=== PATIENT | female | born 1940 | race Caucasian/White ===

== ENCOUNTER 2019-12-06 07:24 | Emergency (ER) | payer OTHER ==
[2019-12-06] MEDS ORDERED: ACETAMINOPHEN 1000 MG/100 ML VIAL (NON FORMULARY) IVPB ONE (08:55)
[2019-12-06 09:41] LABS: BASO % 0.8 % (0-2.0); HEMATOCRIT 35.2 % (32.4-45.2); HEMOGLOBIN 11.5 GM/dL (10.7-15.3); LYMPH % 14.3 % (8-40); MCH 27.8 pg (25.7-33.7); MCHC 32.7 g/dl (32.0-36.0); MEAN CELL VOLUME 85.2 fl (80-96); MEAN PLT VOLUME 7.1 fl (7.5-11.1); MONO % 6.4 % (3.8-10.2); NEUT % 76.5 % (42.8-82.8); PLATELET COUNT 418 K/MM3 (134-434); RBC 4.13 M/mm3 (3.60-5.2); RDW 14.4 % (11.6-15.6); WHITE BLOOD COUNT 10.2 K/mm3 (4.0-10.0)
[2019-12-06] MEDS ORDERED: ACETAMINOPHEN INJECTION 100 ML IVPB ONE (09:44)
[2019-12-06 10:09] LABS: ALBUMIN 3.1 g/dl (3.4-5.0); BILIRUBIN,TOTAL 0.3 mg/dL (0.2-1); BLOOD UREA NITROGEN 16.4 mg/dL (7-18); CALCIUM 9.4 mg/dL (8.5-10.1); CREATININE 0.6 mg/dL (0.55-1.3); POTASSIUM 4.4 mmol/L (3.5-5.1); TOT PROT 7.1 g/dl (6.4-8.2); URIC ACID 3.3 mg/dL (2.6-7.2)
[2019-12-06 10:23] LABS: ERYTHROCYTE SEDIMENTATION RATE 91 mm/hr (0-30)
[2019-12-06] MEDS ORDERED: LISINOPRIL 20 MG TABLET (FP) PO ONE (11:29)
[2019-12-06] MEDS ORDERED: LISINOPRIL 20 MG TABLET (FP) ONE (11:30)
[2019-12-06 11:40] VITALS: PULSE 78; TEMP 98.1
[2019-12-06 13:09] VITALS: BP 190/71
--- NOTE | 2019-12-06 13:12 | PDOC ---
Documentation entered by Charlie Birch SCRIBE, acting as scribe for Raul Benoit MD. Raul Benoit MD: This documentation has been prepared by the Antolin rosenthal inCharlie SCRIBE, under my direction and personally reviewed by me in its entirety. I confirm that the documentation accurately reflects all work, treatment, procedures, and medical decision making performed by me. History of Present Illness - General Chief Complaint: Chronic pain Stated Complaint: KNEE PAIN Time Seen by Provider: 12/06/19 08:42 History Source: Patient Exam Limitations: No Limitations - History of Present Illness Initial Comments: 12/06/19 09:01 The patient is a 78 year old female with a significant past medical history of HL, HTN, DM, asthma who presents to the ED with bilateral knee, bilateral wrist, bilateral shoulder pain and swelling. Pt was diagnosed with arthritis and stiff muscles about one year ago. Pt goes to physical therapy with Dr. Torrez but has only been twice because of COVID-19. Pt endorses taking Tylenol (last dose yesterday) and Motrin for pain relief. The patient denies chest pain and shortness of breath. Denies fever, chills and/or any GI symptoms. Denies any symptoms. Denies any other symptoms. Allergies: NKDA PCP: Dr. Bailey Ortho: Dr. Torrez Past History - Medical History Allergies/Adverse Reactions: Allergies Allergy/AdvReac Type Severity Reaction Status Date / Time No Known Allergies Allergy Verified 12/06/19 08:18 Home Medications: Ambulatory Orders Atorvastatin Ca [Lipitor] 10 mg PO HS 12/31/15 Lisinopril [Prinivil] 20 mg PO HS 12/31/15 Diclofenac Sodium 75 mg PO BID PRN 11/02/19 Escitalopram Oxalate [Lexapro -] 10 mg PO HS 11/02/19 Ibuprofen [Motrin Ib] 400 mg PO TID PRN 11/02/19 Omeprazole 40 mg PO HS 11/02/19 metFORMIN HCL [Glucophage -] 500 mg PO HS 11/02/19 Oxycodone HCl/Acetaminophen [Percocet 5-325 mg Tablet] 1 tab PO Q6H #20 tablet MDD 3 12/06/19 Asthma: Yes Cardiac Disorders: Yes (MURMUR) COPD: No Diabetes: Yes HTN: Yes Hypercholesterolemia: Yes Psychiatric Problems: Yes (DEPRESSION) - Surgical History Cholecystectomy: Yes - Psycho-Social/Smoking History Smoking History: Never smoked Have you smoked in the past 12 months: No Information on smoking cessation initiated: No - Substance Abuse Hx (Audit-C & DAST Scrn) How often the patient has a drink containing alcohol: Never Score: In Men: 4 or > Positive; In Women: 3 or > Positive: 0 Screen Result (Pos requires Nsg. Audit-10AR): Negative In the last yr the pt used illegal drug/Rx for NonMed reason: No Score: Yes response is considered Positive: 0 Screen Result (Positive result requires Nsg. DAST-10): Negative Review of Systems - Review of Systems Able to Perform ROS?: Yes Comments:: 12/06/19 09:01 CONSTITUTIONAL: No fever, no chills, no fatigue EYES: No visual changes ENT: No ear pain, no sore throat CARDIOVASCULAR: No chest pain, no palpitations RESPIRATORY: No cough, no SOB GI: No abdominal pain, no nausea, no vomiting, no constipation, no diarrhea GENITOURINARY: No dysuria, no frequency, no hematuria MUSKULOSKELETAL: +bilateral knee, bilateral wrist, bilateral shoulder pain and swelling SKIN: No rash NEURO: No headache All Other Systems: Reviewed and Negative *Physical Exam - Vital Signs Last Vital Signs Temp Pulse Resp BP Pulse Ox 100 F H 86 17 205/83 H 99 12/06/19 07:35 12/06/19 07:35 12/06/19 07:35 12/06/19 07:35 12/06/19 08:41 - Physical Exam 12/06/19 13:03 EXAMINATION CONSTITUTIONAL: Awake and alert, obese, in moderatedistress HEAD: Normocephalic; atraumatic EYES: PERRL; EOM intact ENMT: External appears normal; normal oropharynx NECK: Supple; non-tender; no cervical lymphadenopathy CARD: Normal S1, S2; no murmurs, rubs, or gallops RESP: Normal chest excursion with respiration; breath sounds clear and equal bilaterally; no wheezes, rhonchi, or rales ABD: Soft, non-distended; non-tender; no palpable organomegaly, no palpable hernias EXT: + Edema is noted to the bilateral wrist joints, bilateral knee joints with limited passive range of motion at the shoulder joint, elbows, wrists and knees consistent with polyarthritis. SKIN: Warm, dry, no rash NEURO: No focal neurological deficiencies. ED Treatment Course - LABORATORY CBC & Chemistry Diagram: 12/06/19 09:13 12/06/19 09:13 Medical Decision Making - Medical Decision Making 12/06/19 13:05 Patient is a 78-year-old female with history of hypertension and arthritis who presents with diffuse polyarthritis for the past several days. I suspect osteoarthritis, however, rheumatoid arthritis cannot be ruled out at this time. Will administer IV Tylenol. Will obtain CBC/CMP/CRP/ESR. I do not suspect Lyme arthritis at this time. No indication for imaging. Gouty arthritis is also highly unlikely. Will discharge with pain meds with outpatient follow-up. Discharge - Discharge Information Problems reviewed: Yes Clinical Impression/Diagnosis: Arthritis Joint pain Qualifiers: Joint pain location: unspecified Qualified Code(s): M25.50 - Pain in unspecified joint Condition: Stable - Follow up/Referral Referrals: Letitia Bailey [Primary Care Provider] - - Patient Discharge Instructions Patient Printed Discharge Instructions: DI for Arthritis - Post Discharge Activity
== END 2019-12-06 13:13 | disposition home or self-care (01) ==
LOC: JER 07:24
PROC: 3E033NZ Introduction of Analgesics, Hypnotics, Sedatives into Peripheral Vein, Percutaneous Approach (ICD-10-PCS; principal; 2019-12-06)
DX: M25.50 Pain in unspecified joint (principal)
CPT/HCPCS: 36415; 80053; 84550; 85025; 85651; 86140; 96374; 99284-25; J0131

== ENCOUNTER 2020-03-03 09:57 | Inpatient (IN) | payer OTHER ==
[2020-03-03 10:23] VITALS: BMI 30.9
[2020-03-03] MEDS ORDERED: dilTIAZem HCL 50 MG/10 ML - 10 ML VIAL IVPUSH ONE (11:36)
[2020-03-03] MEDS ORDERED: dilTIAZem HCL 125 MG/25 ML - 25 ML VIAL ONE (11:55)
[2020-03-03 12:03] LABS: BASO % 0.7 % (0-2.0); EOS % 1.6 % (0-4.5); HEMOGLOBIN 12.8 GM/dL (10.7-15.3); MCH 28.7 pg (25.7-33.7); MCHC 32.8 g/dl (32.0-36.0); MEAN CELL VOLUME 87.3 fl (80-96); MEAN PLT VOLUME 7.9 fl (7.5-11.1); MONO % 7.6 % (3.8-10.2); NEUT % 71.1 % (42.8-82.8); PLATELET COUNT 280 K/MM3 (134-434); RBC 4.47 M/mm3 (3.60-5.2); RDW 15.5 % (11.6-15.6); WHITE BLOOD COUNT 10.8 K/mm3 (4.0-10.0)
[2020-03-03] MEDS ORDERED: methylPREDNISolone NA SUCC 125 MG/2 ML VIAL IVPB ONE (12:03)
[2020-03-03] MEDS ORDERED: methylPREDNISolone NA SUCC 125 MG/2 ML VIAL ONE (12:03)
[2020-03-03 12:05] LABS: VENOUS BASE EXCESS -1.1 mmol/L (-2-2); VENOUS O2 SATURATION 79.3 % (70-80); VENOUS PH 7.344 (7.310-7.410)
[2020-03-03 12:06] LABS: EPI CELLS >36 /uL (0-25.1); HYALINE CASTS 1 /uL (0-3.1); URINE APPEARANCE CLOUDY; URINE BACTERIA 735 /uL (0-1359); URINE BILIRUBIN NEGATIVE (NEGATIVE); URINE COLOR YELLOW; URINE GLUCOSE (UA) NEGATIVE (NEGATIVE); URINE KETONE NEGATIVE (NEGATIVE); URINE LEUK ESTERASE 1+ (NEGATIVE); URINE NITRITE NEGATIVE (NEGATIVE); URINE PROTEIN 2+ (NEGATIVE); URINE UROBILINOGEN 0.2 mg/dL (0.2-1.0); URINE WBC 30 /uL (0-25.8)
[2020-03-03 12:22] LABS: URINE RBC 16.1 /uL (0-23.9)
[2020-03-03] MEDS ORDERED: METOPROLOL TARTRATE 5 MG/5 ML VIAL IVPUSH ONE ×2 (12:30→18:25)
[2020-03-03 12:35] LABS: ALBUMIN 3.8 g/dl (3.4-5.0); ALK PHOS 94 U/L (45-117); ANION GAP 8 MMOL/L (8-16); BILIRUBIN,DIRECT 0.2 mg/dL (0.0-0.2); BILIRUBIN,TOTAL 0.6 mg/dL (0.2-1); CHLORIDE 107 mmol/L (98-107); CO2 25 mmol/L (21-32); CREATININE 0.6 mg/dL (0.55-1.3); GLUCOSE,RANDOM 152 mg/dL (74-106); POTASSIUM 4.5 mmol/L (3.5-5.1); SGOT/AST 31 U/L (15-37); SGPT/ALT 45 U/L (13-61); SODIUM 139 mmol/L (136-145); TOT PROT 7.6 g/dl (6.4-8.2)
[2020-03-03] MEDS ORDERED: METOPROLOL TARTRATE 5 MG/5 ML VIAL ONE ×3 (12:38→21:36)
[2020-03-03 13:41] LABS: LDH 282 U/L (84-246)
[2020-03-03] MEDS ORDERED: CEFTRIAXONE 1,000 MG in DEXTROSE 5%-WATER - 50 ML IVPB STA (14:13)
[2020-03-03] MEDS ORDERED: HEPARIN NA (PORCINE) 5,000 UNITS/ML 1ML VIAL IVPUSH STA (14:14)
[2020-03-03] MEDS ORDERED: HEPARIN NA (PORCINE) 5,000 UNITS/ML 1ML VIAL IVPUSH PRN ×2 (14:22)
[2020-03-03] MEDS ORDERED: HEPARIN - 25,000 UNIT in SODIUM CHLORIDE 495 ML IV SCH (14:30)
[2020-03-03] MEDS ORDERED: CEFTRIAXONE 1 GM/50 ML BAG ONE (14:31)
[2020-03-03 15:02] LABS: INR 1.13 (0.83-1.09); PROTHROMBIN TIME (PATIENT) 13.3 SEC (9.7-13.0)
[2020-03-03 15:05] LABS: ACTIVATED PTT 21.8 SECONDS (25.2-36.5)
[2020-03-03] MEDS ORDERED: FUROSEMIDE 40 MG/4 ML INJECTABLE VIAL IVPUSH ONE (16:22)
[2020-03-03] MEDS ORDERED: METOPROLOL TARTRATE 50 MG TABLET (FP) PO ONE (16:45)
[2020-03-03] MEDS ORDERED: FUROSEMIDE 40 MG/4 ML INJECTABLE VIAL ONE (16:50)
[2020-03-03] MEDS ORDERED: FUROSEMIDE 40 MG TABLET (FP) PO ONE (20:59)
[2020-03-03] MEDS ORDERED: METOPROLOL TARTRATE 5 MG/5 ML VIAL IVPUSH PRN (20:59)
[2020-03-03] MEDS ORDERED: FUROSEMIDE 40 MG TABLET (FP) ONE (21:36)
[2020-03-03] MEDS: APIXABAN 5 MG TABLET PO SCH (22:06)
[2020-03-03 22:48] LABS: BLOOD UREA NITROGEN 19.5 mg/dL (7-18); CALCIUM 9.3 mg/dL (8.5-10.1); CREATININE 0.7 mg/dL (0.55-1.3); POTASSIUM 4.5 mmol/L (3.5-5.1)
[2020-03-04] MEDS: INSULIN SLIDING SCALE (NOVOLOG) 1 VIAL SQ SCH ×4 (06:15→21:47)
[2020-03-04] MEDS: APIXABAN 5 MG TABLET PO SCH ×2 (09:22→21:47)
[2020-03-04] MEDS ORDERED: METOPROLOL TARTRATE 50 MG TABLET (FP) PO SCH (12:00)
[2020-03-04] MEDS ORDERED: FUROSEMIDE 40 MG/4 ML INJECTABLE VIAL IVPUSH SCH (12:00)
[2020-03-04] MEDS: LISINOPRIL 5 MG TABLET PO SCH ×2 (13:29→13:36)
[2020-03-04] MEDS ORDERED: INSULIN SLIDING SCALE (NOVOLOG) 1 VIAL SQ ONE (17:44)
[2020-03-04] MEDS ORDERED: FLU VACCINE (FLULAVAL) PF 60 MCG/0.5 ML SYRINGE 2020-2021 IM ONE (20:00)
[2020-03-04] MEDS: ATORVASTATIN CA 40 MG TABLET (FP) PO SCH (21:47)
[2020-03-05] MEDS: INSULIN SLIDING SCALE (NOVOLOG) 1 VIAL SQ SCH ×4 (06:27→21:54)
[2020-03-05 07:17] LABS: BASO % 0.5 % (0-2.0); EOS % 1.2 % (0-4.5); HEMATOCRIT 39.2 % (32.4-45.2); HEMOGLOBIN 12.8 GM/dL (10.7-15.3); LYMPH % 30.6 % (8-40); MCH 28.5 pg (25.7-33.7); MCHC 32.7 g/dl (32.0-36.0); MEAN CELL VOLUME 87.2 fl (80-96); MEAN PLT VOLUME 8.1 fl (7.5-11.1); MONO % 5.7 % (3.8-10.2); PLATELET COUNT 313 K/MM3 (134-434); RDW 15.6 % (11.6-15.6); WHITE BLOOD COUNT 13.1 K/mm3 (4.0-10.0)
[2020-03-05 07:32] LABS: ALBUMIN 3.6 g/dl (3.4-5.0); BILIRUBIN,TOTAL 0.6 mg/dL (0.2-1); BLOOD UREA NITROGEN 27.8 mg/dL (7-18); CALCIUM 9.1 mg/dL (8.5-10.1); CREATININE 0.7 mg/dL (0.55-1.3); TOT PROT 7.3 g/dl (6.4-8.2)
[2020-03-05] MEDS: APIXABAN 5 MG TABLET PO SCH (09:01)
[2020-03-05] MEDS ORDERED: ASPIRIN 81 MG CHEWABLE TABLETS PO ONE (09:03)
[2020-03-05] MEDS ORDERED: HEPARIN NA (PORCINE) 5,000 UNITS/ML 1ML VIAL IVPUSH PRN ×2 (09:24)
[2020-03-05] MEDS ORDERED: CLOPIDOGREL BISULFATE 300 MG TABLET PO ONE (09:35)
[2020-03-05] MEDS: LISINOPRIL 5 MG TABLET PO SCH (10:57)
[2020-03-05] MEDS: FUROSEMIDE 20 MG TABLET (FP) PO SCH (10:57)
[2020-03-05] MEDS: HEPARIN SOD,PORK IN 0.45% NACL 25,000 UNITS/500 ML INFUS.BAG IVPB SCH (11:20)
[2020-03-05] MEDS: ATORVASTATIN CA 40 MG TABLET (FP) PO SCH (21:54)
[2020-03-06] MEDS ORDERED: MELATONIN 5 MG TABLETS PO ONE (01:25)
[2020-03-06] MEDS: INSULIN SLIDING SCALE (NOVOLOG) 1 VIAL SQ SCH ×4 (05:59→21:46)
[2020-03-06 08:44] LABS: BILIRUBIN,TOTAL 0.4 mg/dL (0.2-1); BLOOD UREA NITROGEN 22.1 mg/dL (7-18); CALCIUM 8.8 mg/dL (8.5-10.1); CREATININE 0.6 mg/dL (0.55-1.3); POTASSIUM 4.1 mmol/L (3.5-5.1)
[2020-03-06] MEDS: HEPARIN SOD,PORK IN 0.45% NACL 25,000 UNITS/500 ML INFUS.BAG IVPB SCH (09:29)
[2020-03-06] MEDS: LISINOPRIL 5 MG TABLET PO SCH (09:30)
[2020-03-06] MEDS: CLOPIDOGREL BISULFATE 75 MG TABLET (FP) PO SCH (09:30)
[2020-03-06] MEDS: FUROSEMIDE 20 MG TABLET (FP) PO SCH (09:30)
[2020-03-06] MEDS: ASPIRIN 81 MG CHEWABLE TABLETS PO SCH (09:30)
[2020-03-06] MEDS ORDERED: METOPROLOL TARTRATE 5 MG/5 ML VIAL IVPUSH PRN (11:59)
[2020-03-06] MEDS ORDERED: DEXTROSE 5%-WATER - 50 ML IVPB ONE (12:01)
[2020-03-06] MEDS ORDERED: cefTRIAXone SODIUM 1 GM VIAL ONE (12:01)
[2020-03-06] MEDS: CEFTRIAXONE 1 GM in DEXTROSE 5%-WATER - 50 ML IVPB SCH (12:15)
[2020-03-06] MEDS: ATORVASTATIN CA 40 MG TABLET (FP) PO SCH (21:46)
[2020-03-06] MEDS ORDERED: MELATONIN 5 MG TABLETS PO PRN (23:30)
[2020-03-07] MEDS ORDERED: ACETAMINOPHEN 325 MG TABLET (FP) PO ONE (05:30)
[2020-03-07] MEDS: INSULIN SLIDING SCALE (NOVOLOG) 1 VIAL SQ SCH ×2 (05:59→11:28)
[2020-03-07 06:41] LABS: HEMATOCRIT 35.4 % (32.4-45.2); HEMOGLOBIN 11.6 GM/dL (10.7-15.3); MCH 28.2 pg (25.7-33.7); MCHC 32.8 g/dl (32.0-36.0); MEAN PLT VOLUME 8.2 fl (7.5-11.1); PLATELET COUNT 260 K/MM3 (134-434); RBC 4.11 M/mm3 (3.60-5.2); RDW 15.7 % (11.6-15.6); WHITE BLOOD COUNT 9.8 K/mm3 (4.0-10.0)
[2020-03-07] MEDS ORDERED: SODIUM CHLORIDE NASAL SPRAY 44 ML BOTTLE NS PRN ×2 (07:37→08:54)
[2020-03-07] MEDS ORDERED: DEXTROSE 5%-WATER - 50 ML IVPB ONE (08:50)
[2020-03-07] MEDS ORDERED: cefTRIAXone SODIUM 1 GM VIAL ONE (08:50)
[2020-03-07] MEDS: CEFTRIAXONE 1 GM in DEXTROSE 5%-WATER - 50 ML IVPB SCH (08:51)
[2020-03-07] MEDS: LISINOPRIL 5 MG TABLET PO SCH (09:18)
[2020-03-07] MEDS: CLOPIDOGREL BISULFATE 75 MG TABLET (FP) PO SCH (09:18)
[2020-03-07] MEDS: ASPIRIN 81 MG CHEWABLE TABLETS PO SCH (09:18)
[2020-03-07] MEDS: FUROSEMIDE 20 MG TABLET (FP) PO SCH (09:18)
[2020-03-07 09:33] VITALS: BP 138/66; PULSE 126; TEMP 97.9
[2020-03-07] MEDS: HEPARIN SOD,PORK IN 0.45% NACL 25,000 UNITS/500 ML INFUS.BAG IVPB SCH (09:35)
[2020-03-07] MEDS ORDERED: CLOPIDOGREL BISULFATE 300 MG TABLET PO ONE (11:11)
[2020-03-07] MEDS ORDERED: ATORVASTATIN CA 40 MG TABLET (FP) PO ONE (11:43)
[2020-03-07] MEDS ORDERED: ATORVASTATIN CA 80 MG TABLET (FP) PO ONE (12:15)
[2020-03-08] MEDS ORDERED: ATORVASTATIN CA 80 MG TABLET (FP) PO SCH (22:00)
== END 2020-03-07 14:33 | disposition short-term general hospital (02) | DRG 280 ==
LOC: JER 09:57 → JERBED 16:35 → J4S 03-04 01:17
PROVIDERS: ADMIT Internal Medicine; ATTEND Internal Medicine
DX: I21.4 Non-ST elevation (NSTEMI) myocardial infarction (principal); I50.21 Acute systolic (congestive) heart failure; J98.11 Atelectasis; I31.3 Pericardial effusion (noninflammatory); N39.0 Urinary tract infection, site not specified; E87.2 Acidosis; I48.91 Unspecified atrial fibrillation; I10 Essential (primary) hypertension; E78.5 Hyperlipidemia, unspecified; E11.9 Type 2 diabetes mellitus without complications; J45.909 Unspecified asthma, uncomplicated; L50.0 Allergic urticaria; T46.1X5A Adverse effect of calcium-channel blockers, initial encounter; M41.9 Scoliosis, unspecified; N28.1 Cyst of kidney, acquired; E66.9 Obesity, unspecified; Z68.29 Body mass index [BMI] 29.0-29.9, adult; D72.829 Elevated white blood cell count, unspecified; F41.8 Other specified anxiety disorders
CPT/HCPCS: 36415; 71045-TC-FY; 71275-TC; 80048; 80053; 80061; 81003; 82248; 82550; 82728; 82803; 82962; 83036; 83605; 83615; 83721; 83880; 84443; 84484; 85025; 85027; 85379; 85610; 85730; 86140; 87040; 87086; 87186; 87804; 93005; 93010; 93306-TC; 93970-TC; 94660; 99291; C9803; G0008; Q2036; Q9967; U0003

== ENCOUNTER 2020-06-07 08:44 | Inpatient (IN) | payer OTHER ==
[2020-06-07] MEDS ORDERED: DEXAMETHASONE SOD PHOSPHATE 10 MG/1 ML VIAL ONE (09:13)
[2020-06-07] MEDS ORDERED: ALBUTEROL SO4 2.5/IPRATROPIUM 0.5 INH SOL 3 ML VIAL.NEB. NEB ONE (09:13)
[2020-06-07] MEDS ORDERED: METOPROLOL TARTRATE 5 MG/5 ML VIAL IVPUSH ONE ×2 (09:57→11:18)
[2020-06-07] MEDS ORDERED: metoPROLOL SUCCINATE 25 MG TAB.SR.24H (FP) ONE (10:02)
[2020-06-07 10:15] LABS: BASO % 0.8 % (0-2.0); EOS % 2.6 % (0-4.5); HEMATOCRIT 39.7 % (32.4-45.2); LYMPH % 12.8 % (8-40); MCH 28.6 pg (25.7-33.7); MCHC 32.8 g/dl (32.0-36.0); MEAN CELL VOLUME 87.4 fl (80-96); MEAN PLT VOLUME 8.6 fl (7.5-11.1); MONO % 5.1 % (3.8-10.2); NEUT % 78.7 % (42.8-82.8); PLATELET COUNT 264 K/MM3 (134-434); RBC 4.55 M/mm3 (3.60-5.2); RDW 15.7 % (11.6-15.6); WHITE BLOOD COUNT 9.2 K/mm3 (4.0-10.0)
[2020-06-07 10:31] LABS: POTASSIUM 4.8 mmol/L (3.5-5.1)
[2020-06-07 10:35] LABS: ALBUMIN 3.7 g/dl (3.4-5.0); BLOOD UREA NITROGEN 21.5 mg/dL (7-18); CALCIUM 9.1 mg/dL (8.5-10.1)
[2020-06-07 10:38] LABS: CREATININE 0.7 mg/dL (0.55-1.3); TOT PROT 7.5 g/dl (6.4-8.2)
[2020-06-07 10:39] LABS: BILIRUBIN,TOTAL 0.8 mg/dL (0.2-1)
[2020-06-07] MEDS ORDERED: ALBUTEROL SO4 HFA INHALER IH ONE ×2 (10:44→13:22)
[2020-06-07] MEDS ORDERED: METOPROLOL TARTRATE 5 MG/5 ML VIAL ONE ×2 (10:59→11:26)
[2020-06-07 12:23] LABS: MAGNESIUM 1.4 mg/dL (1.8-2.4)
[2020-06-07] MEDS ORDERED: MAGNESIUM SULF 50% (8.12 MEQ/2 ML-1 GM VIAL) IVPB ONE (12:58)
[2020-06-07] MEDS ORDERED: MAGNESIUM 1GM/D5W - 1 GM/100 ML IVPB IVPB ONE (13:23)
[2020-06-07] MEDS ORDERED: FUROSEMIDE 40 MG/4 ML INJECTABLE VIAL ONE (19:20)
[2020-06-07] MEDS: FUROSEMIDE 40 MG/4 ML INJECTABLE VIAL IVPB SCH (19:42)
[2020-06-07] MEDS: APIXABAN 5 MG TABLET PO SCH (21:20)
[2020-06-07] MEDS: ATORVASTATIN CA 80 MG TABLET (FP) PO SCH (21:20)
[2020-06-07] MEDS: MAGNESIUM OXIDE 400 MG TABLET (FP) PO SCH (21:20)
[2020-06-07] MEDS: metoPROLOL SUCCINATE 25 MG TAB.SR.24H (FP) PO SCH (21:20)
[2020-06-08 01:36] VITALS: BMI 29.2
[2020-06-08] MEDS: INSULIN SLIDING SCALE (NOVOLOG) 1 VIAL SQ SCH ×2 (06:31→16:37)
[2020-06-08] MEDS: FUROSEMIDE 40 MG/4 ML INJECTABLE VIAL IVPB SCH ×2 (06:32→13:09)
[2020-06-08 08:46] LABS: BASO % 0.3 % (0-2.0); HEMOGLOBIN 12.4 GM/dL (10.7-15.3); MCH 28.4 pg (25.7-33.7); MCHC 32.6 g/dl (32.0-36.0); MEAN CELL VOLUME 86.9 fl (80-96); MEAN PLT VOLUME 8.8 fl (7.5-11.1); MONO % 7.2 % (3.8-10.2); NEUT % 77.5 % (42.8-82.8); PLATELET COUNT 278 K/MM3 (134-434); RBC 4.37 M/mm3 (3.60-5.2); RDW 16.2 % (11.6-15.6); WHITE BLOOD COUNT 12.3 K/mm3 (4.0-10.0)
[2020-06-08 08:58] LABS: POTASSIUM 4.4 mmol/L (3.5-5.1)
[2020-06-08 09:00] LABS: CALCIUM 9.3 mg/dL (8.5-10.1)
[2020-06-08 09:01] LABS: ALBUMIN 3.5 g/dl (3.4-5.0); BLOOD UREA NITROGEN 28.2 mg/dL (7-18); MAGNESIUM 1.7 mg/dL (1.8-2.4)
[2020-06-08 09:04] LABS: CREATININE 0.9 mg/dL (0.55-1.3)
[2020-06-08 09:06] LABS: BILIRUBIN,TOTAL 0.6 mg/dL (0.2-1)
[2020-06-08] MEDS: ASPIRIN 81 MG CHEWABLE TABLETS PO SCH (09:26)
[2020-06-08] MEDS: PANTOPRAZOLE 40 MG TABLET PO SCH (09:26)
[2020-06-08] MEDS: LISINOPRIL 5 MG TABLET PO SCH (09:26)
[2020-06-08] MEDS: metoPROLOL SUCCINATE 25 MG TAB.SR.24H (FP) PO SCH ×2 (09:26→21:15)
[2020-06-08] MEDS: CLOPIDOGREL BISULFATE 75 MG TABLET (FP) PO SCH (09:26)
[2020-06-08] MEDS: SPIRONOLACTONE 25 MG TABLET PO SCH (09:26)
[2020-06-08] MEDS: MAGNESIUM OXIDE 400 MG TABLET (FP) PO SCH ×2 (09:26→21:15)
[2020-06-08] MEDS: APIXABAN 5 MG TABLET PO SCH ×2 (09:26→21:15)
[2020-06-08] MEDS: ATORVASTATIN CA 80 MG TABLET (FP) PO SCH (21:15)
[2020-06-09] MEDS: ACETAMINOPHEN 325 MG TABLET (FP) PO PRN ×2 (05:56→23:12)
[2020-06-09] MEDS: FUROSEMIDE 40 MG/4 ML INJECTABLE VIAL IVPB SCH ×2 (05:57→14:54)
[2020-06-09] MEDS: INSULIN SLIDING SCALE (NOVOLOG) 1 VIAL SQ SCH ×2 (06:15→17:38)
[2020-06-09 07:54] LABS: POTASSIUM 3.9 mmol/L (3.5-5.1)
[2020-06-09 07:56] LABS: BLOOD UREA NITROGEN 35.5 mg/dL (7-18); CALCIUM 8.9 mg/dL (8.5-10.1); MAGNESIUM 1.8 mg/dL (1.8-2.4)
[2020-06-09 07:59] LABS: CREATININE 0.9 mg/dL (0.55-1.3)
[2020-06-09] MEDS ORDERED: PT OWN MED DRAWER 7, Y5N ONE (09:40)
[2020-06-09] MEDS: APIXABAN 5 MG TABLET PO SCH ×2 (10:59→23:12)
[2020-06-09] MEDS: metoPROLOL SUCCINATE 25 MG TAB.SR.24H (FP) PO SCH ×2 (10:59→23:12)
[2020-06-09] MEDS: PANTOPRAZOLE 40 MG TABLET PO SCH (11:00)
[2020-06-09] MEDS: CLOPIDOGREL BISULFATE 75 MG TABLET (FP) PO SCH (11:00)
[2020-06-09] MEDS: SPIRONOLACTONE 25 MG TABLET PO SCH (11:00)
[2020-06-09] MEDS: LISINOPRIL 5 MG TABLET PO SCH (11:00)
[2020-06-09] MEDS: MAGNESIUM OXIDE 400 MG TABLET (FP) PO SCH ×2 (11:00→23:12)
[2020-06-09] MEDS: ASPIRIN 81 MG CHEWABLE TABLETS PO SCH (11:00)
[2020-06-09] MEDS: ESCITALOPRAM OXALATE 10 MG TABLET PO SCH (14:55)
[2020-06-09] MEDS: ATORVASTATIN CA 80 MG TABLET (FP) PO SCH (23:12)
[2020-06-10] MEDS: INSULIN SLIDING SCALE (NOVOLOG) 1 VIAL SQ SCH ×2 (07:25→18:07)
[2020-06-10] MEDS: FUROSEMIDE 40 MG/4 ML INJECTABLE VIAL IVPB SCH ×2 (07:25→14:17)
[2020-06-10] MEDS: CLOPIDOGREL BISULFATE 75 MG TABLET (FP) PO SCH (09:07)
[2020-06-10] MEDS: PANTOPRAZOLE 40 MG TABLET PO SCH (09:07)
[2020-06-10] MEDS: ESCITALOPRAM OXALATE 10 MG TABLET PO SCH (09:07)
[2020-06-10] MEDS: MAGNESIUM OXIDE 400 MG TABLET (FP) PO SCH ×2 (09:07→23:56)
[2020-06-10] MEDS: APIXABAN 5 MG TABLET PO SCH ×2 (09:07→23:56)
[2020-06-10] MEDS: LISINOPRIL 5 MG TABLET PO SCH (09:08)
[2020-06-10] MEDS: metoPROLOL SUCCINATE 25 MG TAB.SR.24H (FP) PO SCH ×2 (09:08→23:56)
[2020-06-10] MEDS: SPIRONOLACTONE 25 MG TABLET PO SCH (09:10)
[2020-06-10] MEDS: ASPIRIN 81 MG CHEWABLE TABLETS PO SCH (09:10)
[2020-06-10] MEDS: ACETAMINOPHEN 325 MG TABLET (FP) PO PRN (23:56)
[2020-06-10] MEDS: ATORVASTATIN CA 80 MG TABLET (FP) PO SCH (23:56)
[2020-06-11] MEDS: FUROSEMIDE 40 MG/4 ML INJECTABLE VIAL IVPB SCH (06:59)
[2020-06-11] MEDS: INSULIN SLIDING SCALE (NOVOLOG) 1 VIAL SQ SCH (06:59)
[2020-06-11 07:34] LABS: BASO % 1.2 % (0-2.0); EOS % 5.6 % (0-4.5); HEMATOCRIT 40.1 % (32.4-45.2); HEMOGLOBIN 13.2 GM/dL (10.7-15.3); LYMPH % 25.3 % (8-40); MCH 28.6 pg (25.7-33.7); MEAN CELL VOLUME 86.7 fl (80-96); MONO % 8.6 % (3.8-10.2); NEUT % 59.3 % (42.8-82.8); PLATELET COUNT 310 K/MM3 (134-434); RBC 4.63 M/mm3 (3.60-5.2); RDW 15.4 % (11.6-15.6); WHITE BLOOD COUNT 9.8 K/mm3 (4.0-10.0)
[2020-06-11 07:58] LABS: POTASSIUM 4.2 mmol/L (3.5-5.1)
[2020-06-11 08:32] LABS: BLOOD UREA NITROGEN 30.4 mg/dL (7-18)
[2020-06-11 08:35] LABS: CREATININE 0.8 mg/dL (0.55-1.3)
[2020-06-11] MEDS: LISINOPRIL 5 MG TABLET PO SCH (09:24)
[2020-06-11] MEDS: APIXABAN 5 MG TABLET PO SCH (09:24)
[2020-06-11] MEDS: MAGNESIUM OXIDE 400 MG TABLET (FP) PO SCH (09:24)
[2020-06-11] MEDS: ESCITALOPRAM OXALATE 10 MG TABLET PO SCH (09:24)
[2020-06-11] MEDS: SPIRONOLACTONE 25 MG TABLET PO SCH (09:24)
[2020-06-11] MEDS: CLOPIDOGREL BISULFATE 75 MG TABLET (FP) PO SCH (09:24)
[2020-06-11] MEDS: ASPIRIN 81 MG CHEWABLE TABLETS PO SCH (09:24)
[2020-06-11] MEDS: PANTOPRAZOLE 40 MG TABLET PO SCH (09:25)
[2020-06-11] MEDS: metoPROLOL SUCCINATE 25 MG TAB.SR.24H (FP) PO SCH (09:42)
[2020-06-11] MEDS ORDERED: PT OWN MED DRAWER 7, Y5N ONE (10:12)
[2020-06-11 16:09] VITALS: BP 129/68; PULSE 75; TEMP 97.9
[2020-06-12] MEDS ORDERED: FUROSEMIDE 40 MG TABLET (FP) PO SCH (10:00)
== END 2020-06-11 16:40 | disposition home or self-care (01) | DRG 293 ==
LOC: JER 08:44 → JERBED 13:31 → J4W 21:02
PROVIDERS: ADMIT Internal Medicine; ATTEND Internal Medicine
DX: I11.0 Hypertensive heart disease with heart failure (principal); I50.23 Acute on chronic systolic (congestive) heart failure; I25.10 Atherosclerotic heart disease of native coronary artery without angina pectoris; I48.0 Paroxysmal atrial fibrillation; J45.909 Unspecified asthma, uncomplicated; F41.8 Other specified anxiety disorders; E11.9 Type 2 diabetes mellitus without complications; E78.5 Hyperlipidemia, unspecified; M19.90 Unspecified osteoarthritis, unspecified site; I34.0 Nonrheumatic mitral (valve) insufficiency; Z95.5 Presence of coronary angioplasty implant and graft; I25.2 Old myocardial infarction; Z91.14 Patient's other noncompliance with medication regimen; Z20.828 Contact with and (suspected) exposure to other viral communicable diseases
CPT/HCPCS: 36415; 71045-TC-FY; 71046-TC-FY; 80048; 80053; 80061; 82550; 82962; 83036; 83721; 83735; 83880; 84443; 84484; 85025; 87804; 93005; 93010; 94761; 99285-25; C9803; U0003

== ENCOUNTER 2022-08-06 09:44 | Observation (INO) | payer OTHER ==
[2022-08-06] MEDS ORDERED: ALBUTEROL SO4 2.5/IPRATROPIUM 0.5 INH SOL 3 ML VIAL.NEB. NEB ONE ×2 (11:24→11:58)
[2022-08-06] MEDS ORDERED: DEXAMETHASONE SOD PHOSPHATE 20 MG/5 ML VIAL IVPB ONE (11:25)
[2022-08-06] MEDS ORDERED: SODIUM CHLORIDE 0.9% 500 ML INFUS.BAG IV ONE (11:25)
[2022-08-06] MEDS ORDERED: DEXAMETHASONE SOD PHOSPHATE 10 MG/1 ML VIAL ONE (11:59)
[2022-08-06] MEDS ORDERED: DEXAMETHASONE SOD PHOSPHATE 4 MG/1 ML VIAL ONE (11:59)
[2022-08-06 12:35] LABS: BASO % 1.2 % (0-2.0); EOS % 6.2 % (0-4.5); HEMOGLOBIN 12.2 GM/dL (10.7-15.3); LYMPH % 19.7 % (8-40); MCH 28.4 pg (25.7-33.7); MCHC 32.9 g/dl (32.0-36.0); MEAN CELL VOLUME 86.5 fl (80-96); MEAN PLT VOLUME 8.2 fl (7.5-11.1); MONO % 6.4 % (3.8-10.2); NEUT % 66.5 % (42.8-82.8); PLATELET COUNT 264 10^3/uL (134-434); RBC 4.28 M/mm3 (3.60-5.2); RDW 13.6 % (11.6-15.6); WHITE BLOOD COUNT 8.3 K/mm3 (4.0-10.0)
[2022-08-06 12:54] LABS: ALBUMIN 3.3 g/dl (3.4-5.0); CALCIUM 9.1 mg/dL (8.5-10.1)
[2022-08-06 12:55] LABS: BLOOD UREA NITROGEN 14.3 mg/dL (7-18)
[2022-08-06 12:57] LABS: CREATININE 0.7 mg/dL (0.55-1.3)
[2022-08-06 12:59] LABS: BILIRUBIN,TOTAL 0.6 mg/dL (0.2-1); TOT PROT 6.9 g/dl (6.4-8.2)
[2022-08-06 13:23] LABS: VENOUS BASE EXCESS 1.1 mmol/L (-2-2); VENOUS O2 SATURATION 90.4 % (70-80); VENOUS PCO2 40.4 mmHg (38-52); VENOUS PH 7.42 (7.310-7.410)
[2022-08-06] MEDS ORDERED: IBUPROFEN 600 MG TABLET (FP) PO ONE (14:06)
[2022-08-06] MEDS ORDERED: METOPROLOL TARTRATE 5 MG/5 ML VIAL IVPUSH ONE ×2 (15:26→18:32)
[2022-08-06] MEDS ORDERED: FUROSEMIDE 40 MG/4 ML INJECTABLE VIAL IVPUSH ONE (15:30)
[2022-08-06] MEDS ORDERED: FUROSEMIDE 40 MG/4 ML INJECTABLE VIAL ONE (15:33)
[2022-08-06] MEDS ORDERED: METOPROLOL TARTRATE 5 MG/5 ML VIAL ONE (15:33)
[2022-08-06] MEDS ORDERED: metoPROLOL SUCCINATE 25 MG TAB.SR.24H (FP) PO SCH (17:30)
[2022-08-06] MEDS ORDERED: ALBUTEROL SO4 0.083% IH SOL 2.5 MG/3 ML VIAL.NEB. NEB PRN (19:32)
[2022-08-06] MEDS: metoPROLOL SUCCINATE 25 MG TAB.SR.24H (FP) PO SCH (21:40)
[2022-08-06] MEDS: APIXABAN 5 MG TABLET PO SCH (21:41)
[2022-08-06] MEDS ORDERED: ATORVASTATIN CA 80 MG TABLET (FP) PO SCH (22:00)
[2022-08-07] MEDS: INSULIN SLIDING SCALE (NOVOLOG) 1 VIAL SQ SCH ×2 (06:37→12:11)
[2022-08-07 07:17] LABS: BASO % 0.3 % (0-2.0); HEMATOCRIT 36.3 % (32.4-45.2); HEMOGLOBIN 11.9 GM/dL (10.7-15.3); LYMPH % 13.9 % (8-40); MCH 28.9 pg (25.7-33.7); MCHC 32.8 g/dl (32.0-36.0); MEAN CELL VOLUME 88.2 fl (80-96); MEAN PLT VOLUME 8.3 fl (7.5-11.1); MONO % 3.6 % (3.8-10.2); NEUT % 82.2 % (42.8-82.8); PLATELET COUNT 268 10^3/uL (134-434); RBC 4.12 M/mm3 (3.60-5.2); RDW 14.1 % (11.6-15.6); WHITE BLOOD COUNT 9.4 K/mm3 (4.0-10.0)
[2022-08-07 07:32] LABS: CALCIUM 8.8 mg/dL (8.5-10.1)
[2022-08-07 07:33] LABS: ALBUMIN 3.1 g/dl (3.4-5.0); BLOOD UREA NITROGEN 30.5 mg/dL (7-18); MAGNESIUM 1.9 mg/dL (1.8-2.4)
[2022-08-07 07:35] LABS: CHOLESTEROL 179 mg/dL (50-200)
[2022-08-07 07:36] LABS: CREATININE 0.9 mg/dL (0.55-1.3); PHOSPHOROUS 5.2 mg/dL (2.5-4.9); TRIGLYCERIDES 88 mg/dL (0-150)
[2022-08-07 07:37] LABS: LDL CHOLESTEROL (ONLY SJRH) 117 mg/dL (5-100)
[2022-08-07 07:38] LABS: BILIRUBIN,TOTAL 0.6 mg/dL (0.2-1); HDL CHOLESTEROL 49 mg/dL (40-60); TOT PROT 6.5 g/dl (6.4-8.2)
[2022-08-07] MEDS: APIXABAN 5 MG TABLET PO SCH (09:23)
[2022-08-07] MEDS: metoPROLOL SUCCINATE 25 MG TAB.SR.24H (FP) PO SCH (09:23)
[2022-08-07] MEDS ORDERED: ASPIRIN 81 MG CHEWABLE TABLETS PO SCH (10:00)
[2022-08-07] MEDS ORDERED: methylPREDNISolone NA SUCC 40 MG/1 ML VIAL IVPUSH SCH (10:00)
[2022-08-07] MEDS ORDERED: LISINOPRIL 5 MG TABLET PO SCH (10:00)
[2022-08-07] MEDS ORDERED: PANTOPRAZOLE 40 MG TABLET PO SCH (10:00)
[2022-08-07] MEDS ORDERED: FUROSEMIDE 40 MG/4 ML INJECTABLE VIAL IVPUSH SCH (10:00)
[2022-08-07 10:46] VITALS: RESP 18
[2022-08-07 15:48] VITALS: BP 120/65; PULSE 88; TEMP 97.6
== END 2022-08-07 16:44 | disposition home or self-care (01) ==
LOC: JER 09:44 → JERBED 14:57 → J4W 17:31
PROVIDERS: ADMIT Internal Medicine; ATTEND Internal Medicine
PROC: 3E033NZ Introduction of Analgesics, Hypnotics, Sedatives into Peripheral Vein, Percutaneous Approach (ICD-10-PCS; principal; 2022-08-06)
PROC: 3E033GC Introduction of Other Therapeutic Substance into Peripheral Vein, Percutaneous Approach (ICD-10-PCS; 2022-08-06)
PROC: 3E013VG Introduction of Insulin into Subcutaneous Tissue, Percutaneous Approach (ICD-10-PCS; 2022-08-06)
DX: I48.91 Unspecified atrial fibrillation (principal); J45.909 Unspecified asthma, uncomplicated; E11.9 Type 2 diabetes mellitus without complications; F32.A Depression, unspecified; Z79.84 Long term (current) use of oral hypoglycemic drugs; Z79.01 Long term (current) use of anticoagulants
CPT/HCPCS: 0241U-QW; 36415; 71045-TC-FY; 80053; 80061; 82803; 82962; 83036; 83735; 83880; 84100; 84443; 84484; 85025; 93005; 93010; 96372; 96374; 96375; 96376; 97116-GP; 97162-GP; 99285-25; G0378

== ENCOUNTER 2022-08-14 05:23 | Emergency (ER) | payer OTHER ==
[2022-08-14 05:33] VITALS: BMI 26.5
[2022-08-14] MEDS ORDERED: SODIUM CHLORIDE 0.9% 500 ML INFUS.BAG IV ONE (05:52)
[2022-08-14] MEDS ORDERED: ONDANSETRON 4 MG/2 ML VIAL IVPUSH ONE (05:52)
[2022-08-14] MEDS ORDERED: morphine CARPU-JECT 4 MG/1 ML DISP.SYRIN IVPUSH ONE (05:52)
[2022-08-14] MEDS ORDERED: morphine SULFATE 4 MG/ML VIAL ONE (05:53)
[2022-08-14] MEDS ORDERED: ONDANSETRON 4 MG/2 ML VIAL ONE (05:53)
[2022-08-14 06:28] LABS: BASO % 0.6 % (0-2.0); EOS % 2.6 % (0-4.5); HEMATOCRIT 42.8 % (32.4-45.2); HEMOGLOBIN 14.3 GM/dL (10.7-15.3); LYMPH % 13.5 % (8-40); MCH 28.7 pg (25.7-33.7); MCHC 33.3 g/dl (32.0-36.0); MONO % 5.5 % (3.8-10.2); NEUT % 77.8 % (42.8-82.8); PLATELET COUNT 322 10^3/uL (134-434); RBC 4.98 M/mm3 (3.60-5.2); RDW 14.1 % (11.6-15.6); WHITE BLOOD COUNT 15.3 K/mm3 (4.0-10.0)
[2022-08-14 06:42] LABS: ALBUMIN 3.4 g/dl (3.4-5.0); CALCIUM 9.2 mg/dL (8.5-10.1)
[2022-08-14 06:43] LABS: BLOOD UREA NITROGEN 26.7 mg/dL (7-18); MAGNESIUM 1.5 mg/dL (1.8-2.4)
[2022-08-14 06:46] LABS: CREATININE 1.3 mg/dL (0.55-1.3)
[2022-08-14 06:47] LABS: BILIRUBIN,TOTAL 0.6 mg/dL (0.2-1); TOT PROT 6.8 g/dl (6.4-8.2)
[2022-08-14] MEDS ORDERED: MAGNESIUM SULF 50% (8.12 MEQ/2 ML-1 GM VIAL) IVPB ONE (06:47)
[2022-08-14] MEDS ORDERED: MAGNESIUM SULFATE IN WATER 2 GM/50 ML IVPB IVPB ONE (06:49)
[2022-08-14 09:54] LABS: URINE APPEARANCE CLEAR; URINE BILIRUBIN NEGATIVE (NEGATIVE); URINE COLOR YELLOW; URINE GLUCOSE (UA) NEGATIVE (NEGATIVE); URINE KETONE NEGATIVE (NEGATIVE)
[2022-08-14 09:55] LABS: EPI CELLS 39.1 /uL (0-25.1); HYALINE CASTS 3.14 /uL (0-3.1); URINE BACTERIA 263.5 /uL (0-1359); URINE LEUK ESTERASE TRACE (NEGATIVE); URINE NITRITE NEGATIVE (NEGATIVE); URINE PROTEIN NEGATIVE (NEGATIVE); URINE RBC 10.6 /uL (0-23.9); URINE UROBILINOGEN 0.2 mg/dL (0.2-1.0); URINE WBC 125.7 /uL (0-25.8)
[2022-08-14] MEDS ORDERED: CEFTRIAXONE 1 GM in DEXTROSE 5%-WATER - 100 ML IVPB ONE (10:09)
[2022-08-14] MEDS ORDERED: CEFTRIAXONE 1 GM/50 ML BAG ONE (10:18)
[2022-08-14 10:35] VITALS: BP 132/68; PULSE 81; RESP 17; TEMP 97.8
== END 2022-08-14 11:00 | disposition home or self-care (01) ==
LOC: JER 05:23
PROC: 3E033GC Introduction of Other Therapeutic Substance into Peripheral Vein, Percutaneous Approach (ICD-10-PCS; principal; 2022-08-14)
DX: K55.1 Chronic vascular disorders of intestine (principal); K57.90 Diverticulosis of intestine, part unspecified, without perforation or abscess without bleeding; I48.91 Unspecified atrial fibrillation; I50.9 Heart failure, unspecified; N39.0 Urinary tract infection, site not specified; I25.10 Atherosclerotic heart disease of native coronary artery without angina pectoris
CPT/HCPCS: 0241U-QW; 36415; 74174-TC; 80053; 81003; 83605; 83690; 83735; 84484; 85025; 86850; 86870; 86900; 86901; 86902; 87086; 93005; 93010; 96365; 96375; 99285-25; Q9967

== ENCOUNTER 2022-09-17 10:08 | Observation (INO) | payer OTHER ==
[2022-09-17 10:17] VITALS: BMI 29.7
[2022-09-17] MEDS ORDERED: methylPREDNISolone NA SUCC 125 MG/2 ML VIAL ONE (10:21)
[2022-09-17] MEDS ORDERED: ALBUTEROL SO4 2.5/IPRATROPIUM 0.5 INH SOL 3 ML VIAL.NEB. NEB ONE ×2 (10:21→11:00)
[2022-09-17] MEDS ORDERED: methylPREDNISolone NA SUCC 125 MG/2 ML VIAL IVPUSH ONE (10:25)
[2022-09-17] MEDS ORDERED: METOPROLOL TARTRATE 5 MG/5 ML VIAL IVPUSH ONE (11:24)
[2022-09-17] MEDS ORDERED: MAGNESIUM SULF 50% (8.12 MEQ/2 ML-1 GM VIAL) IVPB ONE (11:27)
[2022-09-17] MEDS ORDERED: METOPROLOL TARTRATE 5 MG/5 ML VIAL ONE ×2 (11:34→17:40)
[2022-09-17] MEDS ORDERED: MAGNESIUM SULFATE IN WATER 2 GM/50 ML IVPB IVPB ONE (11:35)
[2022-09-17 11:50] LABS: HEMATOCRIT 41.1 % (32.4-45.2); HEMOGLOBIN 13.8 GM/dL (10.7-15.3); LYMPH % 33.4 % (8-40); MCH 28.7 pg (25.7-33.7); MCHC 33.5 g/dl (32.0-36.0); MEAN CELL VOLUME 85.6 fl (80-96); MEAN PLT VOLUME 8.6 fl (7.5-11.1); MONO % 8.8 % (3.8-10.2); NEUT % 51.8 % (42.8-82.8); PLATELET COUNT 166 10^3/uL (134-434); RDW 14.7 % (11.6-15.6); WHITE BLOOD COUNT 7.7 K/mm3 (4.0-10.0)
[2022-09-17 12:00] LABS: POTASSIUM 4.5 mmol/L (3.5-5.1)
[2022-09-17 12:03] LABS: CALCIUM 9.2 mg/dL (8.5-10.1)
[2022-09-17 12:04] LABS: ALBUMIN 3.6 g/dl (3.4-5.0); BLOOD UREA NITROGEN 20.1 mg/dL (7-18); MAGNESIUM 1.6 mg/dL (1.8-2.4)
[2022-09-17 12:07] LABS: CREATININE 0.9 mg/dL (0.55-1.3)
[2022-09-17 12:08] LABS: BILIRUBIN,TOTAL 0.6 mg/dL (0.2-1); TOT PROT 7.3 g/dl (6.4-8.2)
[2022-09-17 12:20] LABS: PLATELET ESTIMATE ADEQUATE
[2022-09-17 12:27] LABS: N-TERMINAL BNP 3520.5 pg/ml (5-450)
[2022-09-17] MEDS ORDERED: METOPROLOL TARTRATE 5 MG/5 ML VIAL IVPUSH PRN (15:03)
[2022-09-17] MEDS: INSULIN SLIDING SCALE (NOVOLOG) 1 VIAL SQ SCH ×2 (17:54→21:51)
[2022-09-17] MEDS: MAGNESIUM OXIDE 400 MG TABLET (FP) PO SCH (21:51)
[2022-09-17] MEDS: SACUBITRIL/VALSARTAN 24 MG-26 MG TABLET PO SCH (21:51)
[2022-09-17] MEDS: APIXABAN 5 MG TABLET PO SCH (21:51)
[2022-09-17] MEDS ORDERED: ATORVASTATIN CA 80 MG TABLET (FP) PO SCH (22:00)
[2022-09-17] MEDS: BUDESONIDE/FORMETEROL FUMARATE 160/4.5 mcg INHALER IH SCH (22:52)
[2022-09-18 06:10] VITALS: RESP 20
[2022-09-18] MEDS: INSULIN SLIDING SCALE (NOVOLOG) 1 VIAL SQ SCH ×2 (06:12→12:05)
[2022-09-18 06:23] LABS: HEMATOCRIT 38.1 % (32.4-45.2); LYMPH % 13.1 % (8-40); MCHC 34.1 g/dl (32.0-36.0); MEAN CELL VOLUME 84.9 fl (80-96); MEAN PLT VOLUME 8.5 fl (7.5-11.1); MONO % 3.3 % (3.8-10.2); NEUT % 83.6 % (42.8-82.8); PLATELET COUNT 178 10^3/uL (134-434); RBC 4.49 M/mm3 (3.60-5.2); RDW 14.4 % (11.6-15.6); WHITE BLOOD COUNT 8.9 K/mm3 (4.0-10.0)
[2022-09-18 06:43] LABS: POTASSIUM 4.6 mmol/L (3.5-5.1)
[2022-09-18 06:46] LABS: CALCIUM 9.2 mg/dL (8.5-10.1)
[2022-09-18 06:47] LABS: ALBUMIN 3.2 g/dl (3.4-5.0); BLOOD UREA NITROGEN 22.2 mg/dL (7-18)
[2022-09-18 06:50] LABS: CREATININE 0.8 mg/dL (0.55-1.3); PHOSPHOROUS 3.4 mg/dL (2.5-4.9)
[2022-09-18 06:51] LABS: BILIRUBIN,TOTAL 0.6 mg/dL (0.2-1); TOT PROT 6.5 g/dl (6.4-8.2)
[2022-09-18] MEDS ORDERED: ALBUTEROL SO4 2.5/IPRATROPIUM 0.5 INH SOL 3 ML VIAL.NEB. NEB PRN (07:15)
[2022-09-18] MEDS: MAGNESIUM OXIDE 400 MG TABLET (FP) PO SCH ×2 (09:42→09:52)
[2022-09-18] MEDS: SACUBITRIL/VALSARTAN 24 MG-26 MG TABLET PO SCH (09:42)
[2022-09-18] MEDS: APIXABAN 5 MG TABLET PO SCH (09:42)
[2022-09-18] MEDS: BUDESONIDE/FORMETEROL FUMARATE 160/4.5 mcg INHALER IH SCH (09:43)
[2022-09-18] MEDS ORDERED: LORATADINE 10 MG TABLET PO SCH (10:00)
[2022-09-18] MEDS ORDERED: SPIRONOLACTONE 25 MG TABLET PO SCH (10:00)
[2022-09-18] MEDS ORDERED: MONTELUKAST NA 10 MG TABLET PO SCH (10:00)
[2022-09-18] MEDS ORDERED: ASPIRIN 81 MG CHEWABLE TABLETS PO SCH (10:00)
[2022-09-18] MEDS ORDERED: LISINOPRIL 5 MG TABLET PO SCH (10:00)
[2022-09-18] MEDS ORDERED: FUROSEMIDE 40 MG TABLET (FP) PO SCH (10:00)
[2022-09-18] MEDS ORDERED: ESCITALOPRAM OXALATE 10 MG TABLET PO SCH (10:00)
[2022-09-18 14:21] VITALS: BP 134/66; PULSE 93; TEMP 98.4
== END 2022-09-18 16:01 | disposition home or self-care (01) ==
LOC: JER 10:08 → JERBED 13:12 → UNDOADMOB 13:12 → INTOOBSV 13:12 → JERBED 15:57 → J4S 21:01
PROVIDERS: ADMIT Internal Medicine; ATTEND Internal Medicine
PROC: 3E0F7GC Introduction of Other Therapeutic Substance into Respiratory Tract, Via Natural or Artificial Opening (ICD-10-PCS; principal; 2022-09-17)
PROC: 3E013VG Introduction of Insulin into Subcutaneous Tissue, Percutaneous Approach (ICD-10-PCS; 2022-09-17)
PROC: 3E033GC Introduction of Other Therapeutic Substance into Peripheral Vein, Percutaneous Approach (ICD-10-PCS; 2022-09-17)
PROC: 3E013VG Introduction of Insulin into Subcutaneous Tissue, Percutaneous Approach (ICD-10-PCS; 2022-09-17)
DX: J45.901 Unspecified asthma with (acute) exacerbation (principal); I48.91 Unspecified atrial fibrillation; I11.0 Hypertensive heart disease with heart failure; I50.20 Unspecified systolic (congestive) heart failure; E78.5 Hyperlipidemia, unspecified; E11.9 Type 2 diabetes mellitus without complications; R00.0 Tachycardia, unspecified; Z88.8 Allergy status to other drugs, medicaments and biological substances; F32.A Depression, unspecified; Z91.199 Patient's noncompliance with other medical treatment and regimen due to unspecified reason
CPT/HCPCS: 0241U-QW; 36415; 71045-TC-FY; 80053; 82962; 83735; 83880; 84100; 84484; 85025; 93005; 93010; 93306-TC; 94640; 96365; 96372; 96374; 96375; 99291; G0378